=== PATIENT | female | born 1960 | race Caucasian/White ===

== ENCOUNTER → 2020-04-28 | Outpatient (CLI) | payer OTHER ==
--- NOTE | 2020-04-28 17:16 | Diagnostic Imaging Report ---
INDICATION: Right knee pain AP, oblique and lateral views of the right knee are obtained. There is extensive narrowing of the lateral compartment of the knee joint with marginal spurring and irregularity. There is no acute fracture or malalignment identified. There is no abnormal lytic or sclerotic focus. IMPRESSION: Osteoarthritis involving primarily the lateral compartment of the right knee. No definite acute abnormality is detected. Dictated by: Dictated on workstation # [id number]
== END ==
LOC: RAD FS 16:17
PROVIDERS: ATTEND Family Medicine
DX: M17.11 Unilateral primary osteoarthritis, right knee (principal)
CPT/HCPCS: 73562